=== PATIENT | female | born 1975 | race African-American/Black ===

== ENCOUNTER → 2025-04-06 | Outpatient (REF) | payer OTHER ==
[~2025-04-06] MED LIST: FISH OIL PO; GLUCOSAMINE-CH1 EACH PO; MAGNESIUM OXID400 MG PO; TUMERIC PO; [UNRECOGNIZED DRUG - OTHER] PO
== END ==
LOC: RAD 12:00 → EDSTATUS 04-18 07:30
PROVIDERS: ATTEND Orthopaedic Surgery Sports Medicine
DX: Z01.810 Encounter for preprocedural cardiovascular examination (principal); S83.272A Complex tear of lateral meniscus, current injury, left knee, initial encounter; S83.242A Other tear of medial meniscus, current injury, left knee, initial encounter; M23.8X2 Other internal derangements of left knee
CPT/HCPCS: 93005